=== PATIENT | male | born 1995 | race Two or more races ===

== ENCOUNTER 2016-03-21 09:16 | Emergency (ER) | payer OTHER ==
[~2016-03-21] VITALS: Ht 175.3 cm; Wt 65.0 kg
[2016-03-21 09:30] VITALS: BP 135/72
[2016-03-23 13:44] LABS: CHLAMYDIA TRACHOMATIS NEGATIVE; NEISSERIA GONORRHOEAE NEGATIVE
== END 2016-03-21 11:42 | disposition home or self-care (01) ==
LOC: EME 09:16
PROVIDERS: Nurse Practitioner Family
DX: A64 Unspecified sexually transmitted disease (principal); Z20.2 Contact with and (suspected) exposure to infections with a predominantly sexual mode of transmission
CPT/HCPCS: 87491; 87591; 99281; 99283; J0696

== ENCOUNTER 2017-01-08 20:55 | Emergency (ER) | payer SELFPAY ==
[~2017-01-08] VITALS: Ht 175.3 cm; Wt 74.0 kg
[2017-01-08 21:29] VITALS: BP 120/71
[2017-01-08] MEDS ORDERED: ELIMITE 5% CREA60 GM TP (21:43)
== END 2017-01-08 22:02 | disposition home or self-care (01) ==
LOC: EME 20:55
DX: B86 Scabies (principal)
CPT/HCPCS: 99281; 99283